=== PATIENT | female | born 1980 | race Hispanic/Latino ===

== ENCOUNTER 2018-10-07 12:41 | Emergency (ER) | payer OTHER ==
[~2018-10-07] VITALS: Ht 154.9 cm; Wt 72.6 kg
[~2018-10-07 12:41] MED LIST: OMEPRAZOLE20 MG PO; PANTOPRAZOLE SO40 MG PO
--- OUTSIDE RECORDS SUMMARY | 2018-10-07 12:44 | XMS REPORT ---
Author Author Roland Gibbons Organization eClinicalWorks Address Unknown Phone Unavailable Care Team Providers Care Electrician Outside Name Role Phone Roland Gibbons CP Unavailable Allergies, Adverse Reactions, Alerts Substance Reaction Event Type N.K.D.A. Info Not Available Non Drug Allergy Problems Problem Type Condition Code Onset Dates Condition Status Problem Raynaud''s phenomenon without gangrene I73.00 Active Assessment Undifferentiated connective tissue disease M35.9 Active Problem Undifferentiated connective tissue disease M35.9 Active Assessment Raynaud''s phenomenon without gangrene I73.00 Active Medications Medication Code System Code Instructions Start Date End Date Status Dosage Pantoprazole Sodium [facility] 66028562021 40 MG Orally Once a day Active 1 tablet Fluoxetine HCl ND 49698055647 10 MG Orally Once a day Active 1 tablet in the morning Hyoscyamine Sulfate ND 65331994336 0.125 MG Orally every 4 hrs Active 1 tablet before meals as needed Hydroxychloroquine Sulfate ND 98432776832 200 MG Orally twice a day Jul 28, 2017 Active 1 tablet daily with food or milk for 7 days then Vital Signs Date/Time: Jul 28, 2017 BMI 34.53 Index Weight 171 lbs Height 59 in Temperature 98.6 F Cardiac Monitoring Heart Rate 100 /min Blood Pressure Diastolic 72 mm Hg Blood Pressure Systolic 100 mm Hg Results No Known Results Summary Purpose eClinicalWorks Submission
--- OUTSIDE RECORDS SUMMARY | 2018-10-07 12:44 | XMS REPORT ---
Author Author Justice Elizabeth Organization e[employer]Works Address Unknown Phone Unavailable Care Team Providers Care Child Adolescent Care Name Role Phone Justice Elizabeth CP Unavailable Allergies No Known Allergies Problems Problem Type Condition Code Onset Dates Condition Status Assessment Cervical pain M54.2 Active Problem Memory loss R41.3 Active Problem Numbness on left side R20.0 Active Problem Vasculitis I77.6 Active Assessment Back pain, lumbosacral M54.5 Active Problem Undifferentiated connective tissue disease M35.9 Active Problem Raynaud''s phenomenon without gangrene I73.00 Active Medications No Known Medications Results No Known Results Summary Purpose eClinicalWorks Submission
--- OUTSIDE RECORDS SUMMARY | 2018-10-07 12:44 | XMS REPORT ---
Author Author Justice Elizabeth Organization [employer] Address Unknown Phone Unavailable Care Team Providers Care Physician Compensation Analyst Name Role Phone Justice Elizabeth CP Unavailable Allergies No Known Allergies Problems Problem Type Condition Code Onset Dates Condition Status Problem Raynaud''s phenomenon without gangrene I73.00 Active Assessment Raynaud''s phenomenon without gangrene I73.00 Active Problem Undifferentiated connective tissue disease M35.9 Active Assessment Undifferentiated connective tissue disease M35.9 Active Medications No Known Medications Results No Known Results Summary Purpose eClinicalWorks Submission
--- OUTSIDE RECORDS SUMMARY | 2018-10-07 12:44 | XMS REPORT ---
Author Author Justice Elizabeth Organization [employer] Address Unknown Phone Unavailable Care Team Providers Care Dragline Mechanic Name Role Phone Justice Elizabeth CP Unavailable Allergies No Known Allergies Problems Problem Type Condition Code Onset Dates Condition Status Assessment Osteoporosis screening Z13.820 Active Problem Vasculitis I77.6 Active Problem Memory loss R41.3 Active Problem Lumbar degenerative disc disease M51.36 Active Problem Raynaud''s phenomenon without gangrene I73.00 Active Problem Numbness on left side R20.0 Active Problem Undifferentiated connective tissue disease M35.9 Active Medications Medication Code System Code Instructions Start Date End Date Status Dosage Rizatriptan Benzoate [facility] 27618877965 10 MG Orally Once a day Active 1 tablet as needed one time Imipramine HCl [facility] 04229141764 10 MG Orally Active as directed Fluoxetine HCl [facility] 21908781638 10 MG Orally Once a day Active 1 tablet in the morning Pantoprazole Sodium [facility] 11490343462 40 MG Orally Once a day Active 1 tablet Tramadol HCl [facility] 43275019905 50 MG Orally every 6 hrs Active 1 tablet as needed Vicodin [facility] [address]-75 5-500 MG Orally Active as directed Hyoscyamine Sulfate [facility] 24383213738 0.125 MG Orally every 4 hrs Active 1 tablet before meals as needed Hydroxychloroquine Sulfate [facility] 96432778861 200 MG Orally twice a day Jul 28, 2017 Active 1 tablet with food or milk Norvasc [facility] 62947207312 2.5 MG Orally Once a day Apr 06, 2018 Active 1 tablet Ezetimibe ND 81624504169 10 MG Orally Once a day Active 1 tablet Results No Known Results Summary Purpose eClinicalWorks Submission
--- OUTSIDE RECORDS SUMMARY | 2018-10-07 12:44 | XMS REPORT ---
Author Author Justice Elizabeth [facility] eClinicalWorks Address Unknown Phone Unavailable Care Team Providers Care Chain Pegger Name Role Phone Justice Elizabeth CP Unavailable Allergies No Known Allergies Problems Problem Type Condition Code Onset Dates Condition Status Problem Raynaud''s phenomenon without gangrene I73.00 Active Assessment Chest pain, unspecified R07.9 Active Problem Undifferentiated connective tissue disease M35.9 Active Assessment Undifferentiated connective tissue disease M35.9 Active Assessment Polyarthralgia M25.50 Active Assessment Raynaud''s phenomenon without gangrene I73.00 Active Medications No Known Medications Results No Known Results Summary Purpose eClinicalWorks Submission
--- OUTSIDE RECORDS SUMMARY | 2018-10-07 12:44 | XMS REPORT ---
Author Author Melissa Saldaña [facility] eClinicalWorks Address Unknown Phone Unavailable Care Team Providers Care Provider Network Analyst Name Role Phone Melissa Saldaña Unavailable Allergies No Known Allergies Problems Problem Type Condition Code Onset Dates Condition Status Problem Raynaud''s phenomenon without gangrene I73.00 Active Problem Undifferentiated connective tissue disease M35.9 Active Medications No Known Medications Results No Known Results Summary Purpose eClinicalWorks Submission
--- OUTSIDE RECORDS SUMMARY | 2018-10-07 12:44 | XMS REPORT | Continuity of Care Document ---
Author Author [facility] Address Unknown Phone Unavailable Problems Problem Status Onset Date Classification Date Reported Comments Source Raynaud''s phenomenon without gangrene Active Diagnosis 09/30/2018 Gabriel Clara Undifferentiated connective tissue disease Active Problem 09/30/2018 Gabriel Bustamanteer Chest pain, unspecified Active Diagnosis 08/29/2017 Gabriel Bustamanteer Polyarthralgia Active Diagnosis 11/11/2017 Gabriel Bustamanteer Abdominal pain Active Diagnosis 11/11/2017 Gabriel Bustamanteer Cervical pain Active Diagnosis 04/30/2018 Gabriel Bustamanteer Memory loss Active Problem 09/30/2018 Gabriel Bustamanteer Numbness on left side Active Problem 09/30/2018 Gabriel Bustamanteer Vasculitis Active Problem 09/30/2018 Gabriel Clara Back pain, lumbosacral Active Diagnosis 04/30/2018 Gabriel Clara Osteoporosis screening Active Diagnosis 08/18/2018 Gabriel Bustamanteer Lumbar degenerative disc disease Active Problem 09/30/2018 Gabriel Bustamanteer Epigastric pain Active Diagnosis 09/30/2018 Gabriel Clara Lumbar radiculopathy Active Diagnosis 05/15/2018 Gabriel Clara Lumbago Active Diagnosis 05/15/2018 Gabriel Clara Radiculopathy Active Diagnosis 04/15/2018 Gabriel Elizabeth Medications Medication Details Route Status Patient Instructions Ordering Provider Order Date Source Methotrexate 4 tablets Orally Active 2.5mg Orally Once a week Elizabeth 07/12/2018 Gabriel Elizabeth Folic Acid 1 tablet Orally Active 1 MG Orally Once a day Elizabeth 07/12/2018 Gabriel Elizabeth Norvasc 1 tablet Orally Active 2.5 MG Orally Once a day Elizabeth 04/06/2018 Gabriel Elizabeth Prednisone Taper 3 tablets for 5 days, 2 tablets for 5 days and then 1 tablet for 5 days orally Active 5mg orally q am with food Elizabeth 12/10/2017 Gabriel Elizabeth Hydroxychloroquine Sulfate 1 tablet with food or milk Orally Active 200 MG Orally twice a day Elizabeth 07/28/2017 Gabriel Elizabeth Pantoprazole Sodium 1 tablet Orally Active 40 MG Orally Once a day [place] Gabriel Elizabeth Fluoxetine HCl 1 tablet in the morning Orally Active 10 MG Orally Once a day [place] Gabriel Elizabeth Hyoscyamine Sulfate 1 tablet before meals as needed Orally Active 0.125 MG Orally every 4 hrs [place] Gabriel Elizabeth Hydroxychloroquine Sulfate 1 tablet daily with food or milk for 7 days then Orally Active 200 MG Orally twice a day [place] Gabriel Elizabeth Rizatriptan Benzoate 1 tablet as needed one time Orally Active 10 MG Orally Once a day [place] Gabriel Elizabeth Imipramine HCl as directed Orally Active 10 MG Orally [place] Gabriel Bustamanteer Tramadol HCl 1 tablet as needed Orally Active 50 MG Orally every 6 hrs [place] Gabriel Elizabeth Vicodin as directed Orally Active 5-500 MG Orally [place] Gabriel Elizabeth Ezetimibe 1 tablet Orally Active 10 MG Orally Once a day [place] Gabriel Elizabeth 1 tablet Orally Active 16.2 MG Orally Three times a day [place] Gabriel Elizabeth Tylenol#3 1 tablet Orally Active 300-30 MG Orally Every 6 hours [place] Gabriel Bustamanteer Phenohytro 1 tablet Orally Active 16.2 MG Orally Three times a day [place] Gabriel Bustamanteer Amlodipine Besylate 1 tablet Orally Active 2.5 MG Orally Once a day [place] Gabriel Bustamanteer Allergies, Adverse Reactions, Alerts Substance Category Reaction Severity Reaction type Status Date Reported Comments Source N.K.D.A. Adverse Reaction Info Not Available Adverse Reaction Active 07/12/2018 Gabriel Elizabeth Immunizations Immunization Date Given Site Status Last Updated Comments Source Results Order Name Results Value Reference Range Date Interpretation Comments Source Vital Signs Vital Sign Value Date Comments Source Weight 173.5 07/12/2018 Gabriel Elizabeth Height 60 07/12/2018 Gabriel Elizabeth Temperature Oral (F) 97.9 F 07/12/2018 Gabriel Elizabeth Heart Rate 90 07/12/2018 Gabriel Elizabeth Diastolic (mm Hg) 80 07/12/2018 Gabriel Elizabeth Systolic (mm Hg) 124 07/12/2018 Gabriel Elizabeth Weight 178.6 04/06/2018 Gabriel Bustamanteer Height 60 04/06/2018 Gabriel Bustamanteer Temperature Oral (F) 98.3 F 04/06/2018 Gabriel Bustamanteer Heart Rate 88 04/06/2018 Gabriel Elizabeth Diastolic (mm Hg) 72 04/06/2018 Gabriel Elizabeth Systolic (mm Hg) 112 04/06/2018 Gabriel Elizabeth Weight 173.5 12/10/2017 Gabriel Elizabeth Height 60 12/10/2017 Gabriel Elizabeth Temperature Oral (F) 98.2 F 12/10/2017 Gabriel Elizabeth Heart Rate 82 12/10/2017 Gabriel Elizabeth Diastolic (mm Hg) 70 12/10/2017 Gabriel Elizabeth Systolic (mm Hg) 132 12/10/2017 Gabriel Elizabeth Weight 173 10/26/2017 Gabriel Elizabeth Height 60 10/26/2017 Gabriel Elizabeth Temperature Oral (F) 98.5 F 10/26/2017 Gabriel Elizabeth Heart Rate 88 10/26/2017 Gabriel Elizabeth Diastolic (mm Hg) 78 10/26/2017 Gabriel Elizabeth Systolic (mm Hg) 120 10/26/2017 Gabriel Elizabeth Weight 171 07/28/2017 Gabriel Elizabeth Height 59 07/28/2017 Gabriel Elizabeth Temperature Oral (F) 98.6 F 07/28/2017 Gabriel Elizabeth Heart Rate 100 07/28/2017 Gabriel Elizabeth Diastolic (mm Hg) 72 07/28/2017 Gabriel Elizabeth Systolic (mm Hg) 100 07/28/2017 Gabriel Elizabeth Encounters Location Location Details Encounter Type Encounter Number Reason For Visit Attending Provider ADM Date DC Date Status Source Procedures Procedure Code Date Perfomer Comments Source
--- OUTSIDE RECORDS SUMMARY | 2018-10-07 12:44 | XMS REPORT ---
Author Author Justice Elizabeth [facility] eClinicalWorks Address Unknown Phone Unavailable Care Team Providers Care Estate Planner Name Role Phone Justice Elizabeth Unavailable Allergies, Adverse Reactions, Alerts Substance Reaction Event Type N.K.D.A. Info Not Available Non Drug Allergy Problems Problem Type Condition Code Onset Dates Condition Status Assessment Undifferentiated connective tissue disease M35.9 Active Assessment Vasculitis I77.6 Active Assessment Raynaud''s phenomenon without gangrene I73.00 Active Problem Vasculitis I77.6 Active Problem Memory loss R41.3 Active Problem Lumbar degenerative disc disease M51.36 Active Problem Raynaud''s phenomenon without gangrene I73.00 Active Problem Numbness on left side R20.0 Active Problem Undifferentiated connective tissue disease M35.9 Active Medications Medication Code System Code Instructions Start Date End Date Status Dosage [facility] [place] 46516062021 16.2 MG Orally Three times a day Active 1 tablet Imipramine HCl ND 21569141882 10 MG Orally Active as directed Vicodin [facility] [place] 2] [address]-27 5-500 MG Orally Active as directed Tylenol#3 NDC 0 300-30 MG Orally Every 6 hours Active 1 tablet Tramadol HCl ND 68900125529 50 MG Orally every 6 hrs Active 1 tablet as needed Methotrexate ND 23897218155 2.5mg Orally Once a week Jul 12, 2018 October 10, 2018 Active 4 tablets Norvasc [facility] [place] 2] 30646020377 2.5 MG Orally Once a day Apr 06, 2018 Active 1 tablet Hyoscyamine Sulfate ND 23913465541 0.125 MG Orally every 4 hrs Active 1 tablet before meals as needed Hydroxychloroquine Sulfate ND 89998390385 200 MG Orally twice a day Jul 28, 2017 Active 1 tablet with food or milk Ezetimibe ND 62415981751 10 MG Orally Once a day Active 1 tablet Phenohytro [facility] [place] 2] 33188409650 16.2 MG Orally Three times a day Active 1 tablet Folic Acid ND 33837026236 1 MG Orally Once a day Jul 12, 2018 October 10, 2018 Active 1 tablet Fluoxetine HCl [facility] [place] 2] 77312760929 10 MG Orally Once a day Active 1 tablet in the morning Amlodipine Besylate [facility] [place] 2] 92504405097 2.5 MG Orally Once a day Active 1 tablet Rizatriptan Benzoate [facility] [place] 2] 87930799488 10 MG Orally Once a day Active 1 tablet as needed one time Pantoprazole Sodium [facility] [place]NOTE 2] 65997081730 40 MG Orally Once a day Active 1 tablet Vital Signs Date/Time: Jul 12, 2018 BMI 33.88 Index Weight 173.5 lbs Height 60 in Temperature 97.9 F Cardiac Monitoring Heart Rate 90 /min Blood Pressure Diastolic 80 mm Hg Blood Pressure Systolic 124 mm Hg Results Name Result Date Reference Range Unit Abnormality Flag CBC W/AUTO DIFF ----MONOCYTES 9.1 20180712 4.0-13.0 % ----LYMPHOCYTES 24.3 20180712 19.0-48.0 % ----HEMOGLOBIN 13.3 20180712 11.5-15.5 G/DL ----HEMATOCRIT 38.1 48656562 34.0-45.0 % ----MCV 80.5 20180712 80.0-100.0 fL ----MCH 28.1 20180712 27.0-34.0 PG ----MCHC 34.9 37846316 32.0-35.5 G/DL ----PLATELET COUNT 245 20180712 130-400 K/UL ----RDW 13.2 67021683 11.0-15.0 % ----WBC 9.2 58209563 4.0-11.0 K/UL ----NEUTROPHILS 60.3 91846277 40.0-74.0 % ----BASOPHILS 0.8 35803049 0.0-2.0 % ----RBC 4.73 39606596 3.80-5.10 M/UL ----EOSINOPHILS 5.5 11382571 0.0-7.0 % C-REACTIVE PROTEIN ----C-REACTIVE PROTEIN 1.3 20180712 <0.5 MG/DL H COMPREHENSIVE METABOLIC PANEL ----CALC A/G RATIO 1.6 85411781 1.0-2.6 RATIO ----CALC GLOBULIN 2.6 20180712 1.9-3.7 G/DL ----ALKALINE PHOSPHATASE 100 20180712 40-112 U/L ----BILIRUBIN, TOTAL 0.6 20180712 <=1.2 MG/DL ----CHLORIDE 106 20180712 95-107 MEQ/L ----ALT 41 20180712 5-40 U/L H ----POTASSIUM 4.1 20180712 3.5-5.4 MEQ/L ----AST 30 20180712 9-40 U/L ----SODIUM 142 20180712 133-146 MEQ/L ----CALC BUN/CREAT 25 20180712 628 RATIO ---- eGFR NON- AMER. 118 20180712 >60 ML/MIN/1.73 ----CALCIUM 8.5 20180712 8.5-10.5 MG/DL ----CARBON DIOXIDE 24 20180712 19-31 MEQ/L ----ALBUMIN 4.1 20180712 3.5-5.2 G/DL ----PROTEIN, TOTAL 6.7 20180712 6.1-8.3 G/DL ----GLUCOSE 104 20180712 70-99 MG/DL H ----BUN 14 20180712 6-20 MG/DL ----CREATININE 0.57 20180712 0.60-1.30 MG/DL L ---- eGFR AMER. 137 20180712 >60 ML/MIN/1.73 SEDIMENTATION RATE ----SEDIMENTATION RATE 7 20180712 0-20 MM/HOUR Summary Purpose eClinicalWorks Submission
--- OUTSIDE RECORDS SUMMARY | 2018-10-07 12:44 | XMS REPORT ---
Author Author Justice Elizabeth Organization eClinicalWorks Address Unknown Phone Unavailable Care Team Providers Care Powder Mill Operator Name Role Phone Justice Elizabeth CP Unavailable [...]
--- OUTSIDE RECORDS SUMMARY | 2018-10-07 12:44 | XMS REPORT ---
Author Author Sina Rome [facility] eClinicalWorks Address Unknown Phone Unavailable Care Team Providers Care Humanities Professor Name Role Phone Sina Rome Unavailable Allergies No Known Allergies Problems Problem Type Condition Code Onset Dates Condition Status Problem Raynaud''s phenomenon without gangrene I73.00 Active Problem Undifferentiated connective tissue disease M35.9 Active Medications No Known Medications Results No Known Results Summary Purpose eClinicalWorks Submission
--- OUTSIDE RECORDS SUMMARY | 2018-10-07 12:44 | XMS REPORT ---
Author Justice Emery Organization eClinicalWorks Address Unknown Phone Unavailable Care Team Providers Care Senior Informatica Etl Developer Name Role Phone Justice Elizabeth CP Unavailable Allergies No Known Allergies Problems Problem Type Condition Code Onset Dates Condition Status Problem Raynaud''s phenomenon without gangrene I73.00 Active Problem Undifferentiated connective tissue disease M35.9 Active Medications No Known Medications Results No Known Results Summary Purpose eClinicalWorks Submission
--- OUTSIDE RECORDS SUMMARY | 2018-10-07 12:44 | XMS REPORT ---
Author Author Roland Gibbons Organization eClinicalWorks Address Unknown Phone Unavailable Care Team Providers Care It Architect Name Role Phone Roland Gibbons CP Unavailable Allergies No Known Allergies Problems Problem Type Condition Code Onset Dates Condition Status Problem Raynaud''s phenomenon without gangrene I73.00 Active Problem Undifferentiated connective tissue disease M35.9 Active Medications No Known Medications Results No Known Results Summary Purpose eClinicalWorks Submission
--- OUTSIDE RECORDS SUMMARY | 2018-10-07 12:44 | XMS REPORT ---
Author Justice Emery Organization eClinicalWorks Address Unknown Phone Unavailable Care Team Providers Care Appliance Line Assembler Name Role Phone Justice Elizabeth CP Unavailable Allergies No Known Allergies Problems Problem Type Condition Code Onset Dates Condition Status Problem Raynaud''s phenomenon without gangrene I73.00 Active Problem Undifferentiated connective tissue disease M35.9 Active Medications No Known Medications Results No Known Results Summary Purpose eClinicalWorks Submission
--- OUTSIDE RECORDS SUMMARY | 2018-10-07 12:44 | XMS REPORT ---
Author Author Melissa Saldaña [facility] eClinicalWorks Address Unknown Phone Unavailable Care Team Providers Care Elementary Educator Name Role Phone Melissa Saldaña Unavailable Allergies, Adverse Reactions, Alerts Substance Reaction Event Type N.K.D.A. Info Not Available Non Drug Allergy Problems Problem Type Condition Code Onset Dates Condition Status Problem Raynaud''s phenomenon without gangrene I73.00 Active Assessment Raynaud''s phenomenon without gangrene I73.00 Active Problem Undifferentiated connective tissue disease M35.9 Active Assessment Abdominal pain R10.9 Active Assessment Undifferentiated connective tissue disease M35.9 Active Assessment Polyarthralgia M25.50 Active Medications Medication Code System Code Instructions Start Date End Date Status Dosage Hydroxychloroquine Sulfate ND 47424777521 200 MG Orally twice a day Active 1 tablet daily with food or milk for 7 days then Pantoprazole Sodium ND 10413052875 40 MG Orally Once a day Active 2 tablets Hyoscyamine Sulfate ND 41226016359 0.125 MG Orally every 4 hrs Active 1 tablet before meals as needed Vital Signs Date/Time: October 26, 2017 BMI 33.78 Index Weight 173 lbs Height 60 in Temperature 98.5 F Cardiac Monitoring Heart Rate 88 /min Blood Pressure Diastolic 78 mm Hg Blood Pressure Systolic 120 mm Hg Results Name Result Date Reference Range Unit Abnormality Flag COMPREHENSIVE METABOLIC PANEL W/EGFR ----CALCIUM 9.1 20171026 8.6-10.2 mg/dL N ----CARBON DIOXIDE 26 20171026 20-31 mmol/L N ----ALT 26 20171026 6-29 U/L N ----CREATININE 0.71 20171026 0.50-1.10 mg/dL N ----AST 20 20171026 10-30 U/L N ----eGFR NON-AFR. KYRGYZ 110 20171026 > OR=60 mL/min/1.73m2 N ----ALKALINE PHOSPHATASE 88 75851502 33-115 U/L N ----eGFR 127 20171026 > OR=60 mL/min/1.73m2 N ----BILIRUBIN, TOTAL 0.5 20171026 0.2-1.2 mg/dL N ----BUN/CREATININE RATIO NOT APPLICABLE 20171026 6-22 (calc) ----ALBUMIN/GLOBULIN RATIO 1.4 20171026 1.0-2.5 (calc) N ----SODIUM 139 20171026 135-146 mmol/L N ----GLOBULIN 2.8 20171026 1.9-3.7 g/dL (calc) N ----POTASSIUM 4.0 20171026 3.5-5.3 mmol/L N ----GLUCOSE 96 20171026 65-139 mg/dL N ----CHLORIDE 106 20171026 98-110 mmol/L N ----ALBUMIN 4.0 27256882 3.6-5.1 g/dL N ----UREA NITROGEN (BUN) 17 20171026 7-25 mg/dL N ----PROTEIN, TOTAL 6.8 87014054 6.1-8.1 g/dL N SED RATE BY MODIFIED WESTERGREN ----SED RATE BY MODIFIED WESTERGREN 5 20171026 < OR=20 mm/h N C-REACTIVE PROTEIN ----C-REACTIVE PROTEIN 4.6 39515022 <8.0 mg/L N CBC (INCLUDES DIFF/PLT) ----MCHC 33.7 63176589 32.0-36.0 g/dL N ----MCH 27.5 65982226 27.0-33.0 pg N ----PLATELET COUNT 252 20171026 140-400 Thousand/uL N ----RDW 14.2 12344837 11.0-15.0 % N ----BASOPHILS 1.5 89345067 % N ----ABSOLUTE NEUTROPHILS 3395 20171026 5135-0608 cells/uL N ----ABSOLUTE LYMPHOCYTES 2298 20171026 850-3900 cells/uL N ----MPV 13.4 71478581 7.5-12.5 fL H ----ABSOLUTE BASOPHILS 104 20171026 0-200 cells/uL N ----HEMATOCRIT 38.6 43235400 35.0-45.0 % N ----NEUTROPHILS 49.2 80648678 % N ----MCV 81.6 66680154 80.0-100.0 fL N ----RED BLOOD CELL COUNT 4.73 36838821 3.80-5.10 Million/uL N ----ABSOLUTE MONOCYTES 642 67793375 200-950 cells/uL N ----ABSOLUTE EOSINOPHILS 462 26052296 15-500 cells/uL N ----HEMOGLOBIN 13.0 34357251 11.7-15.5 g/dL N ----EOSINOPHILS 6.7 90286339 % N ----WHITE BLOOD CELL COUNT 6.9 17811792 3.8-10.8 Thousand/uL N ----LYMPHOCYTES 33.3 71011454 % N ----MONOCYTES 9.3 62161363 % N ANCA SCREEN WITH MPO AND PR3 WITH REFLEX TO ANCA T ----PROTEINASE 3 ANTIBODY <1.0 24216926 <1.0 AI ----MYELOPEROXIDASE AB <1.0 52318475 <1.0 AI ----ATYPICAL P ANCA TITER TNP 07061529 titer ----C ANCA TITER TNP 94300771 titer ----P ANCA TITER TNP 52428069 titer ----ANCA SCREEN NEGATIVE 20171026 NEGATIVE Summary Purpose eClinicalWorks Submission
--- OUTSIDE RECORDS SUMMARY | 2018-10-07 12:45 | XMS REPORT ---
Author Author Justice Elizabeth Organization eClinicalWorks Address Unknown Phone Unavailable Care Team Providers Care Ic Designer Gate Arrays Name Role Phone Justice Elizabeth CP Unavailable Allergies No Known Allergies Problems Problem Type Condition Code Onset Dates Condition Status Problem Memory loss R41.3 Active Problem Numbness on left side R20.0 Active Problem Vasculitis I77.6 Active Problem Undifferentiated connective tissue disease M35.9 Active Problem Raynaud''s phenomenon without gangrene I73.00 Active Medications No Known Medications Results No Known Results Summary Purpose eClinicalWorks Submission
--- OUTSIDE RECORDS SUMMARY | 2018-10-07 12:45 | XMS REPORT ---
Author Author Justice Elizabeth Organization eClinicalWorks Address Unknown Phone Unavailable Care Team Providers Care Quick Mixer Operator Name Role Phone Justice Elizabeth CP [...]
--- OUTSIDE RECORDS SUMMARY | 2018-10-07 12:45 | XMS REPORT ---
Author Author Justice Elizabeth Organization eClinicalWorks Address Unknown Phone Unavailable Care Team Providers Care Reactor Technician Name Role Phone Justice Elizabeth CP Unavailable [...]
--- OUTSIDE RECORDS SUMMARY | 2018-10-07 12:45 | XMS REPORT ---
Author [facility] Address Unknown Phone Unavailable Care Team Providers Care Take Out Waiter Name Role Phone Unavailable Unavailable Payers Payer Name Policy Type Policy Number Effective Date Expiration Date Problems This patient has no known problems. Allergies, Adverse Reactions, Alerts Allergy Name Allergy Type Status Severity Reaction(s) Onset Date Inactive Date Treating Clinician Comments No Known Contrast Allergies DA Active U 2007-12-24 00:00:00 No Known Drug Allergies DA Active U 2007-12-24 00:00:00 No Known Food Allergies DA Active U 2007-12-24 00:00:00 No Known Other Allergies DA Active U 2007-12-24 00:00:00 Medications This patient has no known medications.
--- OUTSIDE RECORDS SUMMARY | 2018-10-07 12:45 | XMS REPORT ---
Author Author Justice Elizabeth Organization [employer] Address Unknown Phone Unavailable Care Team Providers Care Postal Support Employee Name Role Phone Justice Elizabeth CP Unavailable Allergies No Known Allergies Problems Problem Type Condition Code Onset Dates Condition Status Assessment Epigastric pain R10.13 Active Assessment Raynaud''s phenomenon without gangrene I73.00 Active Problem Lumbar degenerative disc disease M51.36 Active Problem Vasculitis I77.6 Active Problem Epigastric pain R10.13 Active Problem Undifferentiated connective tissue disease M35.9 Active Problem Raynaud''s phenomenon without gangrene I73.00 Active Problem Numbness on left side R20.0 Active Problem Memory loss R41.3 Active Medications No Known Medications Results No Known Results Summary Purpose [employer] Submission
--- OUTSIDE RECORDS SUMMARY | 2018-10-07 12:45 | XMS REPORT ---
Author Author Justice Elizabeth Organization [employer] Address Unknown Phone Unavailable Care Team Providers Care Stem Dryer Maintainer Name Role Phone Justice Elizabeth CP Unavailable Allergies No Known Allergies Problems Problem Type Condition Code Onset Dates Condition Status Assessment Lumbar radiculopathy M54.16 Active Assessment Lumbago M54.5 Active Assessment Lumbar degenerative disc disease M51.36 Active Problem Vasculitis I77.6 Active Problem Memory loss R41.3 Active Problem Lumbar degenerative disc disease M51.36 Active Problem Raynaud''s phenomenon without gangrene I73.00 Active Problem Numbness on left side R20.0 Active Problem Undifferentiated connective tissue disease M35.9 Active Medications No Known Medications Results No Known Results Summary Purpose [employer] Submission
--- OUTSIDE RECORDS SUMMARY | 2018-10-07 12:45 | XMS REPORT ---
Author Justice Emery Organization [employer] Address Unknown Phone Unavailable Care Team Providers Care Content Specialist Name Role Phone Justice Elizabeth CP Unavailable [...]
--- OUTSIDE RECORDS SUMMARY | 2018-10-07 12:45 | XMS REPORT ---
Author Justice Emery Organization [employer] Address Unknown Phone Unavailable Care Team Providers Care Oracle Soa Consultant Name Role Phone Justice Elizabeth CP Unavailable Allergies, Adverse Reactions, Alerts Substance Reaction Event Type N.K.D.A. Info Not Available Non Drug Allergy Problems Problem Type Condition Code Onset Dates Condition Status Assessment Numbness on left side R20.0 Active Problem Numbness on left side R20.0 Active Problem Undifferentiated connective tissue disease M35.9 Active Problem Memory loss R41.3 Active Assessment Raynaud''s phenomenon without gangrene I73.00 Active Assessment Memory loss R41.3 Active Problem Raynaud''s phenomenon without gangrene I73.00 Active Assessment Undifferentiated connective tissue disease M35.9 Active Medications Medication Code System Code Instructions Start Date End Date Status Dosage Hydroxychloroquine Sulfate [facility] 30436581248 200 MG Orally twice a day Jul 28, 2017 Active 1 tablet with food or milk Hyoscyamine Sulfate ND 02875201339 0.125 MG Orally every 4 hrs Active 1 tablet before meals as needed Prednisone Taper ND 78238255253 5mg orally q am with food December 10, 2017 December 25, 2017 Active 3 tablets for 5 days, 2 tablets for 5 days and then 1 tablet for 5 days Fluoxetine HCl ND 32921655987 10 MG Orally Once a day Active 1 tablet in the morning Pantoprazole Sodium ND 77617944995 40 MG Orally Once a day Active 1 tablet Vital Signs Date/Time: December 10, 2017 BMI 33.88 Index Weight 173.5 lbs Height 60 in Temperature 98.2 F Cardiac Monitoring Heart Rate 82 /min Blood Pressure Diastolic 70 mm Hg Blood Pressure Systolic 132 mm Hg Results No Known Results Summary Purpose [employer] Submission
--- OUTSIDE RECORDS SUMMARY | 2018-10-07 12:45 | XMS REPORT ---
Author Author Justice Elizabeth Organization [employer] Address Unknown Phone Unavailable Care Team Providers Care Cross Country/Track And Field Coach Name Role Phone Justice Elizabeth CP Unavailable Allergies No Known Allergies Problems Problem Type Condition Code Onset Dates Condition Status Problem Lumbar degenerative disc disease M51.36 Active Problem Vasculitis I77.6 Active Problem Epigastric pain R10.13 Active Problem Undifferentiated connective tissue disease M35.9 Active Problem Raynaud''s phenomenon without gangrene I73.00 Active Problem Numbness on left side R20.0 Active Problem Memory loss R41.3 Active Medications No Known Medications Results No Known Results Summary Purpose [employer] Submission
--- OUTSIDE RECORDS SUMMARY | 2018-10-07 12:45 | XMS REPORT ---
Author Author Justice Elizabeth Organization [employer] Address Unknown Phone Unavailable Care Team Providers Care College Advisor Name Role Phone Justice Elizabeth Unavailable Allergies No Known Allergies Problems Problem Type Condition Code Onset Dates Condition Status Assessment Vasculitis I77.6 Active Assessment Memory loss R41.3 Active Assessment Numbness on left side R20.0 Active Problem Memory loss R41.3 Active Problem Numbness on left side R20.0 Active Problem Vasculitis I77.6 Active Assessment Raynaud''s phenomenon without gangrene I73.00 Active Assessment Undifferentiated connective tissue disease M35.9 Active Problem Undifferentiated connective tissue disease M35.9 Active Problem Raynaud''s phenomenon without gangrene I73.00 Active Medications No Known Medications Results No Known Results Summary Purpose [employer] Submission
--- OUTSIDE RECORDS SUMMARY | 2018-10-07 12:45 | XMS REPORT ---
Author Justice Emery Organization [employer] Address Unknown Phone Unavailable Care Team Providers Care Stonework Tracer Name Role Phone Justice Elizabeth CP Unavailable Allergies No Known Allergies Problems Problem Type Condition Code Onset Dates Condition Status Problem Numbness on left side R20.0 Active Problem Undifferentiated connective tissue disease M35.9 Active Problem Memory loss R41.3 Active Problem Raynaud''s phenomenon without gangrene I73.00 Active Medications No Known Medications Results No Known Results Summary Purpose [employer] Submission
--- OUTSIDE RECORDS SUMMARY | 2018-10-07 12:45 | XMS REPORT ---
Author Justice Emery Organization [employer] Address Unknown Phone Unavailable Care Team Providers Care Horse Racing Analyst Name Role Phone Justice Elizabeth CP Unavailable Allergies No Known Allergies Problems Problem Type Condition Code Onset Dates Condition Status Problem Raynaud''s phenomenon without gangrene I73.00 Active Problem Undifferentiated connective tissue disease M35.9 Active Medications No Known Medications Results No Known Results Summary Purpose [employer] Submission
--- OUTSIDE RECORDS SUMMARY | 2018-10-07 12:45 | XMS REPORT ---
Author Author Justice Elizabeth Organization [employer] Address Unknown Phone Unavailable Care Team Providers Care Software Specialist Name Role Phone Justice Elizabeth CP [...]
--- OUTSIDE RECORDS SUMMARY | 2018-10-07 12:45 | XMS REPORT ---
Author Author Justice Elizabeth [facility] [employer] Address Unknown Phone Unavailable Care Team Providers Care Edge Polisher Name Role Phone Justice Elizabeth Unavailable Allergies, Adverse Reactions, Alerts Substance Reaction Event Type N.K.D.A. Info Not Available Non Drug Allergy Problems Problem Type Condition Code Onset Dates Condition Status Assessment Raynaud''s phenomenon without gangrene I73.00 Active Assessment Memory loss R41.3 Active Problem Memory loss R41.3 Active Problem Numbness on left side R20.0 Active Problem Vasculitis I77.6 Active Assessment Undifferentiated connective tissue disease M35.9 Active Problem Undifferentiated connective tissue disease M35.9 Active Problem Raynaud''s phenomenon without gangrene I73.00 Active Medications Medication Code System Code Instructions Start Date End Date Status Dosage Pantoprazole Sodium [facility] 75382633692 40 MG Orally Once a day Active 1 tablet Hydroxychloroquine Sulfate [facility] 99643942297 200 MG Orally twice a day Jul 28, 2017 Active 1 tablet with food or milk Imipramine HCl [facility] 74541807763 10 MG Orally Active as directed Tramadol HCl [facility] 13043642969 50 MG Orally every 6 hrs Active 1 tablet as needed Fluoxetine HCl ND 18655625082 10 MG Orally Once a day Active 1 tablet in the morning Norvasc [facility] 63048013217 2.5 MG Orally Once a day Apr 06, 2018 Active 1 tablet Vicodin [facility] [address]-34 5-500 MG Orally Active as directed Rizatriptan Benzoate ND 77971883851 10 MG Orally Once a day Active 1 tablet as needed one time Ezetimibe [facility] 37982784920 10 MG Orally Once a day Active 1 tablet Hyoscyamine Sulfate [facility] 47984390156 0.125 MG Orally every 4 hrs Active 1 tablet before meals as needed Vital Signs Date/Time: Apr 06, 2018 BMI 34.88 Index Weight 178.6 lbs Height 60 in Temperature 98.3 F Cardiac Monitoring Heart Rate 88 /min Blood Pressure Diastolic 72 mm Hg Blood Pressure Systolic 112 mm Hg Results No Known Results Summary Purpose [employer] Submission
[2018-10-07] MEDS ORDERED: DONNATAL/LIDOCAINE/MAALOX 30 ML SUSP PO SCH (13:15)
[2018-10-07] MEDS ORDERED: METOCLOPRAMIDE HCL 10 MG/2ML VIAL IV ONE (13:15)
[2018-10-07] MEDS ORDERED: DIPHENHYDRAMINE HCL INJ 50 MG/ML VIAL IV ONE (13:15)
[2018-10-07 14:07] LABS: BASOPHILS # (AUTO) 0.1 (0.0-0.1); BASOPHILS % 0.7 % (0.0-1.0); EOSINOPHILS # (AUTO) 0.8 (0.0-0.4); EOSINOPHILS % 8.2 % (0.0-6.0); HEMATOCRIT 43.6 % (34.2-44.1); HEMOGLOBIN 14.5 g/dL (12.0-16.0); LYMPHOCYTES # (AUTO) 1.9 (1.0-3.2); LYMPHOCYTES % 19.4 % (18.0-39.1); MEAN CORPUSCULAR HEMOGLOBIN 28.4 pg (28-32); MEAN CORPUSCULAR HGB CONC 33.3 g/dL (31-35); MEAN CORPUSCULAR VOLUME 85.5 fL (81-99); MONOCYTES # (AUTO) 0.7 (0.2-0.8); MONOCYTES % 7.4 % (4.4-11.3); NEUTROPHILS # (AUTO) 6.2 (2.1-6.9); NEUTROPHILS % 63.9 % (38.7-80.0); PLATELET COUNT 287 x10e3/uL (140-360); RED CELL DISTRIBUTION WIDTH 13.4 % (11.7-14.4)
[2018-10-07 14:26] LABS: ALANINE AMINOTRANSFERASE 68 IU/L (0-55); ALBUMIN 3.8 g/dL (3.5-5.0); ALKALINE PHOSPHATASE 103 IU/L (40-150); ANION GAP 13.8 mmol/L (8-16); BLOOD UREA NITROGEN 15 mg/dL (7-26); BUN/CREATININE RATIO 21 (6-25); CALCIUM 9.6 mg/dL (8.4-10.2); CARBON DIOXIDE 23 mmol/L (22-29); CHLORIDE 103 mmol/L (98-107); CREATININE, SERUM 0.72 mg/dL (0.57-1.11); EST GLOMERULAR FILTRATION RATE > 60 ML/MIN (60-); GLUCOSE 117 mg/dL (74-118); LIPASE 26 U/L (8-78); POTASSIUM 3.8 mmol/L (3.5-5.1); SODIUM 136 mmol/L (136-145)
[2018-10-07] MEDS ORDERED: BELLADONNA ALK/PHENOBARBITAL 5 ML UDC ONE (15:24)
[2018-10-07] MEDS ORDERED: LIDOCAINE VISC 2% SOLN 15 ML UDC ONE (15:24)
[2018-10-07] MEDS ORDERED: MAGNESIUM/ALUMINUM/SIMETHICONE 30 ML UDC ONE (15:25)
[2018-10-07] MEDS ORDERED: MAGNESIUM/ALUMINUM/SIMETHICONE 30 ML UDC PO ONE (15:30)
[2018-10-07] MEDS ORDERED: BELLADONNA ALK/PHENOBARBITAL 5 ML UDC PO ONE (15:30)
[2018-10-07] MEDS ORDERED: LIDOCAINE VISC 2% SOLN 15 ML UDC PO ONE (15:30)
[2018-10-07 15:46] VITALS: BP 103/59
[2018-10-13] MEDS ORDERED: PLAQUENIL200 MG PO (15:57)
[2018-10-13] MEDS ORDERED: PEPCID20 MG PO (15:58)
[2018-10-13] MEDS ORDERED: TYLENOL WITH C1 EACH PO (15:58)
[2018-10-13] MEDS ORDERED: ULTRAM50 MG PO (15:58)
[2018-10-13] MEDS ORDERED: DICYCLOMINE HCL10 MG PO (15:59)
[2018-10-13] MEDS ORDERED: MAXALT10 MG PO (15:59)
[2018-10-13] MEDS ORDERED: GABAPENTIN300 MG PO (15:59)
== END 2018-10-07 16:50 | disposition home or self-care (01) ==
LOC: ER 12:41
DX: R10.13 Epigastric pain (principal); K21.9 Gastro-esophageal reflux disease without esophagitis
CPT/HCPCS: 36415; 80053; 83690; 85025; 99283; J1200; J2765

== ENCOUNTER → 2018-10-18 | Day surgery (SDC) | payer OTHER ==
[~2018-10-18] MED LIST changes: +DICYCLOMINE HCL10 MG PO; +FENTANYL CITRATE/PF 100MCG/2 ML INJ ONE; +GABAPENTIN300 MG PO; +MAXALT10 MG PO; +MIDAZOLAM HCL 2 MG/2 ML VIAL ONE; +PEPCID20 MG PO; +PLAQUENIL200 MG PO; +PROPOFOL IV EMULSION 10 MG/ML 20 ML VIAL ONE; +TYLENOL WITH C1 EACH PO; +ULTRAM50 MG PO
[2018-10-18 10:40] VITALS: BP 115/79
--- NOTE | 2018-10-18 17:42 | Operative Report ---
DATE OF PROCEDURE: 10/18/2018 SURGEON: Samuel Martinez MD PROCEDURE: Esophagogastroduodenoscopy with esophageal dilatation and biopsies. INDICATION FOR EGD: Dysphagia, upper abdominal pain, early satiety. MEDICATIONS: The patient was done under MAC, please see anesthesiologist's note. PROCEDURE IN DETAIL: With the patient in left lateral decubitus position, flexible fiberoptic Olympus gastroscope was introduced into the esophagus under direct visualization without any difficulty. A minute submucosal nodule was noted in the cervical esophagus and that was biopsied. Mucosa overlying the distal esophagus revealed some patchy areas of erythema. A mild stricture was noted at the GE junction that was dilated to size 52-[place] Pacheco. The scope was then advanced with ease into the stomach. A large amount of retained undigested food was noted in the stomach precluding visualization of part of the fundus and the proximal two-thirds of the body along the greater curvature. The mucosa overlying the antrum revealed some diffuse erythema, low-grade edema and biopsies were obtained and sent to stain for H pylori. Pylorus was of normal contour and shape, was intubated with ease and the scope was advanced all the way to the second portion of the duodenum. The scope was then withdrawn slowly and biopsies were obtained from the proximal second portion and the duodenal bulb to rule out sprue. The scope was then withdrawn back into the stomach and retroflexed and mucosa overlying the cardia appeared to be within normal limits. The fundus was partially visualized due to the retained undigested food and whatever was visualized appeared to be within normal limits. The scope was then straightened out, it was subsequently withdrawn. The patient tolerated procedure well. IMPRESSION: 1. Submucosal nodule, cervical esophagus, biopsied. 2. Distal esophagitis, mild. 3. Esophageal stricture at GE junction, dilated to size 52-[place] Pacheco. 4. Gastritis, biopsied, biopsies sent to stain for H pylori. 5. Large amount of retained undigested food in the stomach precluding partially the visualization of the fundus and the proximal two-thirds of the body along the greater curvature. 6. Rule out sprue. PLAN: Follow up histology. Initiate Protonix 40 mg one p.o. q.a.m. a.c. Samuel Martinez MD [facility] /[id number] cc: Nicholas Vivas
== END | disposition home or self-care (01) ==
LOC: OR 08:14
PROVIDERS: ATTEND Internal Medicine Gastroenterology
DX: K22.2 Esophageal obstruction (principal); K29.70 Gastritis, unspecified, without bleeding; K22.8 Other specified diseases of esophagus; K20.9 Esophagitis, unspecified; K31.89 Other diseases of stomach and duodenum; K21.9 Gastro-esophageal reflux disease without esophagitis; G43.909 Migraine, unspecified, not intractable, without status migrainosus; Z68.31 Body mass index [BMI] 31.0-31.9, adult
CPT/HCPCS: 43239; 43450; 81025; J2250; J2704

== ENCOUNTER → 2025-02-03 | Day surgery (SDC) | payer OTHER ==
[~2025-02-03] MED LIST changes: +AJOVY AUTO225 MG/1.5; +BUPROPION HCL150 MG PO; +COLLAGEN SKIN1 EACH; +DIGESTIVE ENZY1 EAC3; +ETODOLAC400 M1 PO; +FLUOXETINE HCL10 MG PO; +HYOSCYAMINE SULFATE 0.5 MG/ML INJ ONE; +KETAMINE HCL INJ 50 MG/ML 10 ML VIAL ONE; +LIDOCAINE HCL 2% LOCAL INJ 5 ML SDV VIAL INJ ONE; +LOPID600 MG PO; +MAGNESIUM CIT; -MIDAZOLAM HCL 2 MG/2 ML VIAL ONE; +PHENYLEPHRINE HCL 1% 10 MG/ML VIAL ONE; +PROBIOTIC & AC1 EACH PO; -PROPOFOL IV EMULSION 10 MG/ML 20 ML VIAL ONE; +PROPOFOL IV EMULSION 50 ML IV ONE; +SEMAGLUTID1.7 MG/0.2
[2025-02-03] MEDS: LACTATED RINGER'S 1,000 ML ONE (11:21)
[2025-02-03 13:23] VITALS: TEMP 97.1
[2025-02-03 14:05] VITALS: BP 123/71; PULSE 93; RESP 16; O2SAT 98
== END | disposition home or self-care (01) ==
LOC: OR 10:31
PROVIDERS: ATTEND Internal Medicine Gastroenterology
DX: Z12.11 Encounter for screening for malignant neoplasm of colon (principal); M79.7 Fibromyalgia; M35.00 Sjogren syndrome, unspecified; F41.9 Anxiety disorder, unspecified; Z79.899 Other long term (current) drug therapy; Z79.85 Long-term (current) use of injectable non-insulin antidiabetic drugs; Z88.0 Allergy status to penicillin; Z88.5 Allergy status to narcotic agent
CPT/HCPCS: 45378; J1980; J2003; J2371; J2704; J3010; J7121